=== PATIENT | female | born 1975 | race Caucasian/White ===

== ENCOUNTER 2016-08-24 08:26 | Inpatient (IN) | payer OTHER ==
[2016-08-14 15:31] VITALS: BMI 31.0
--- NOTE | 2016-08-14 16:06 | PAT Medication Instructions ---
Service Date Aug 14, 2016. Current Home Medication List Acitretin (Acitretin), 10 MG PO QAM Albuterol Hfa (Ventolin Hfa), 2 PUFFS INH PRN Ascorbic Acid (Vitamin C), 500 MG PO PRN Sertraline (Zoloft), 100 MG PO QAM [Calcium], 1,200 UNITS PO QAM [Vitamin D], 800 UNITS PO QAM Medication Instructions For Your Scheduled Surgery Acitretin (Acitretin), 10 MG PO QAM (patient will check with naturalization examiner for instructions) - Hold the following medications the morning of surgery: Calcium 1,200 UNITS PO QAM Vitamin D, 800 UNITS PO QAM Ascorbic Acid (Vitamin C), 500 MG PO PRN - Take the following medications the morning of surgery with a sip of water: Sertraline (Zoloft), 100 MG PO QAM Albuterol Hfa (Ventolin Hfa), 2 PUFFS INH PRN (bring with you to hospital on day of surgery - use if needed) - Take the following medications as scheduled the night before surgery: Albuterol Hfa (Ventolin Hfa), 2 PUFFS INH PRN (if needed) If you have any questions please call us at [phone] or [phone] ( [place]) or [phone]
[2016-08-14 16:36] LABS: BASO % 0.5 %; BASO ABS # 0.04 K/uL (0-0.2); COMPLETE YES; EOS % 3.7 %; HEMATOCRIT 42.4 % (37-47); IG% 0.1 %; LYMPH % 42.9 %; LYMPH ABS # 3.22 K/uL (1.2-3.4); MEAN CELL VOLUME 88.7 fL (80-100); MEAN CORPUSCULAR HEMOGLOBIN 29.9 pg (25-34); MEAN CORPUSCULAR HGB CONC 33.7 g/dl (32-36); MEAN PLATELET VOLUME 9.5 fL (7.4-10.4); MONO % 7.9 %; NEUT % 44.9 %; PLATELET COUNT 353 K/uL (130-400); RED BLOOD COUNT 4.78 M/uL (4.2-5.4); WHITE BLOOD COUNT 7.51 K/uL (4.8-10.8)
[2016-08-14 16:38] LABS: URINE APPEARANCE CLEAR (CLEAR); URINE BILIRUBIN NEG (NEG); URINE COLOR YELLOW; URINE NITRITE NEG (NEG); URINE PH 6.5 (4.5-7.5); URINE SPECIFIC GRAVITY 1.014 (1.000-1.030); UROBILINOGEN NEG (NEG)
[2016-08-14 16:44] LABS: MANUAL MICROSCOPIC REQUIRED? NO; REVIEW REQ? NO
[2016-08-14 17:01] LABS: BUN/CREATININE RATIO 16.4 (10-20); CREATININE 0.69 mg/dl (0.60-1.20); POTASSIUM 4.1 mmol/L (3.5-5.1)
--- NOTE | 2016-08-14 17:30 | DIAGNOSTIC IMAGING REPORT ---
TWO VIEW CHEST CLINICAL HISTORY: Preoperative examination. FINDINGS: PA and lateral chest radiographs are obtained. The cardiomediastinal silhouette is unremarkable. The lungs and pleural spaces are clear. There is no pneumothorax. The bony thorax appears intact. IMPRESSION: No active disease in the chest. Electronically signed by: Agustin Laguna M.D. 08/14/2016 5:28 PM Dictated Date/Time: 08/14/2016 5:27 PM
[2016-08-24] VITALS (9 sets, daily range): BP systolic 98–139; BP diastolic 59–81; PULSE 49–89; TEMP 36.5–36.9; O2SAT 93–97; Ht 160 cm; Wt 79.6 kg
[~2016-08-24] VITALS: Ht 160 cm; Wt 79.6 kg
[~2016-08-24 08:26] MED LIST: ACIT1CAP PO; ASCO1CAP3 PO; CALC-51 PO; CEFAZOLIN 2000 MG/60 ML D5W IV SCH; CeleBREX 200 MG CAP PO SCH; LACTATED RINGER'S 1000ML 1,000 ML IV SCH; PREGABALIN 75 MG CAP PO SCH; SERT-234 PO; VITAMIN D PO; VNTHFA/IN INH
[2016-08-24] MEDS ORDERED: ROCURONIUM BROMIDE 10 MG/ML 5 ML VIAL ONE (08:52)
[2016-08-24] MEDS ORDERED: FENTANYL CITRATE INJ 50 MCG/1 ML 2 ML VIAL ONE (08:52)
[2016-08-24] MEDS ORDERED: ONDANSETRON INJ 2 MG/ML 2 ML VIAL ONE (08:52)
[2016-08-24] MEDS ORDERED: DEXAMETHASONE SOD INJ 4 MG/ML VIAL ONE (08:52)
[2016-08-24] MEDS ORDERED: PROPOFOL IV EMULSION 10 MG/ML 20 ML VIAL IV ONE (08:52)
[2016-08-24] MEDS ORDERED: MIDAZOLAM HCL 1 MG/ML 2ML VIAL ONE (08:52)
[2016-08-24] MEDS ORDERED: GLYCOPYRROLATE INJ 0.2 MG/ML VIAL ONE (08:52)
[2016-08-24] MEDS ORDERED: NEOSTIGMINE METHYLSULFATE 1 MG/ML 10ML VIAL ONE (08:52)
[2016-08-24] MEDS ORDERED: LIDOCAINE HCL 2% 2 ML VIAL (20MG/ML) ONE (08:52)
[2016-08-24] MEDS ORDERED: LACTATED RINGER'S 1000ML 1,000 ML IV PRN (09:56)
[2016-08-24] MEDS ORDERED: ONDANSETRON INJ 2 MG/ML 2 ML VIAL IV PRN ×2 (10:00→13:15)
--- NOTE | 2016-08-24 10:25 | History and Physical ---
History & Physical Date Aug 24, 2016. Chief Complaint LBP and L leg pain History of Present Illness The patient is a 40 year old female with complaints of above for years that has failed outpatient treatment. no incontinence. numbness in L leg, occ subjective weakness. MRI shows L5-S1 isthmic spondy with foraminal stenosis. Past Medical/Surgical History asthma OA depression smoker BTL hyster Additional History Hepatic Disease: No Endocrine Disorder: No Kidney Disease: No Hypertension: No Heart Disease: No Bleeding Tendencies: No Infectious Diseases: No Allergies Coded Allergies: Iodinated Diagnostic Agents (Verified Allergy, Unknown, ANAPHYLAXIS-WITH CAT SCAN DYE, 08/24/16) SKIN ON FIRE, LOSES HEARING.SOB WITH PROGRESSION Home Medications Scheduled Acitretin (Acitretin), 10 MG PO QAM Albuterol Hfa (Ventolin Hfa), 2 PUFFS INH PRN Ascorbic Acid (Vitamin C), 500 MG PO PRN Sertraline (Zoloft), 100 MG PO QAM [Calcium], 1,200 UNITS PO QAM [Vitamin D], 800 UNITS PO QAM Physical Examination Skin: warm/dry Eyes: normal inspection ENT: normal ENT inspection Head: normocephalic, atraumatic Neck: supple, trachea midline Respiratory/Chest: lungs clear, no respiratory distress Cardiovascular: regular rate, rhythm Back: normal inspection Extremities: normal inspection, normal range of motion Neurologic/Psych: no motor/sensory deficits, alert, normal reflexes, oriented x 3 Diagnosis L5-S1 isthmic spondy gr I. Plan of Treatment L5-S1 TLIF, possible L4-5 PSF
[2016-08-24] MEDS ORDERED: HYDROmorphone INJ 2 MG/ML SYR/VIAL ONE (11:06)
[2016-08-24] MEDS ORDERED: EpHEDrine SULFATE 50MG/5ML SYR ONE (11:45)
[2016-08-24] MEDS ORDERED: BACITRACIN 50000 UNIT VIAL IR ONE (12:10)
[2016-08-24] MEDS ORDERED: FLOSEAL HEMOSTATIC MATRIX 10ML TOP ONE (12:10)
[2016-08-24] MEDS ORDERED: THROMBIN FOR SOLN 20000 UNIT KIT TOP ONE (12:10)
[2016-08-24] MEDS ORDERED: THROMBIN 5000 UNITS KIT TOP ONE (12:10)
[2016-08-24] MEDS ORDERED: BUPIVACAINE/EPINEPHRINE 0.5% MPF 1:200,000 30 ML VIAL INJ ONE (12:10)
[2016-08-24] MEDS: FENTANYL CITRATE INJ 50 MCG/1 ML 2 ML VIAL IV PRN ×2 (12:31→12:36)
[2016-08-24] MEDS: MoRPHine SULFATE 10 MG/ML CARP/VIAL IV PRN ×4 (12:41→12:56)
[2016-08-24] MEDS ORDERED: SODIUM CHLORIDE 0.9% 1000ML 1,000 ML IV SCH (13:04)
--- NOTE | 2016-08-24 13:04 | [facility] Post Operative Brief Note ---
Immediate Operative Summary Operative Date Aug 24, 2016. Pre-Operative Diagnosis L5-S1 Isthmic Spondylolisthesis Post-Operative Diagnosis L5-S1 Isthmic Spondylolisthesis Procedure(s) Performed L5-S1 America Jones with Instrumented Fusion, Interbody Cage L5-S1 Surgeon Dr. Petit Auto Damage Adjuster Surgeon(s) OR scot Estimated Blood Loss 60 mL Findings dict Specimens None
[2016-08-24] MEDS ORDERED: HYDROmorphone HCL 0.5MG/ML 50 ML CASSETTE ONE (13:13)
[2016-08-24] MEDS ORDERED: hydrOXYzine HCL 25 MG TAB PO PRN (13:15)
[2016-08-24] MEDS ORDERED: ACETAMINOPHEN IV 100 ML IV PRN (13:15)
[2016-08-24] MEDS ORDERED: ALUMINUM/MAGNESIUM SUSP 30 ML UDC PO PRN (13:15)
[2016-08-24] MEDS ORDERED: MAGNESIUM HYDROXIDE SUSP 30 ML UDC PO PRN (13:15)
[2016-08-24] MEDS ORDERED: LORAZEPAM INJ 0.5 MG in SYRINGE 0.75 ML IV PRN (13:15)
[2016-08-24] MEDS ORDERED: NALOXONE HCL 0.4 MG/1 ML VIAL/CARP IV PRN ×2 (13:15)
[2016-08-24] MEDS ORDERED: HYDROmorphone INJ 1 MG/ML SYR IV PRN (13:15)
[2016-08-24] MEDS ORDERED: FAMOTIDINE 20 MG TAB PO PRN (13:15)
[2016-08-24] MEDS ORDERED: ALBUTEROL HFA 8 GM INHALER INH PRN (13:15)
[2016-08-24] MEDS ORDERED: SOD PHOSPHATE/SOD BIPHOSPHATE ENEMA 132 ML BTL PR PRN (13:15)
[2016-08-24] MEDS ORDERED: BISACODYL 10 MG SUPP PR PRN (13:15)
[2016-08-24] MEDS ORDERED: PROMETHAZINE HCL INJ 12.5 MG in SODIUM CHLORIDE 0.9% 50ML 50 ML IV PRN (13:15)
[2016-08-24] MEDS ORDERED: METOCLOPRAMIDE HCL INJ 5 MG/ML 2 ML VIAL IV PRN (13:15)
--- NOTE | 2016-08-24 13:18 | Anesthesiology Progress Note ---
Anesthesia Post Op Note Date & Time Aug 24, 2016 at 13:19 Vital Signs Pain Intensity: 4 Vital Signs Past 12 Hours Date Time Temp Pulse Resp B/P Pulse Ox O2 Delivery O2 Flow Rate FiO2 08/24/16 13:05 62 12 107/59 97 Nasal Cannula 4 08/24/16 12:55 71 13 121/70 99 Nasal Cannula 4 08/24/16 12:45 61 14 130/82 98 Mask 10 08/24/16 12:35 62 19 126/83 100 Mask 10 08/24/16 12:26 36.5 74 15 146/96 100 Mask 10 08/24/16 08:48 36.5 49 20 139/81 97 Room Air Notes Mental Status: alert / awake / arousable, participated in evaluation Pt Amnestic to Procedure: Yes Nausea / Vomiting: adequately controlled Pain: adequately controlled Airway Patency, RR, SpO2: stable & adequate BP & HR: stable & adequate Hydration State: stable & adequate Anesthetic Complications: no major complications apparent
[2016-08-24] MEDS: HYDROmorphone HCL 0.5MG/ML 50 ML CASSETTE IV PRN ×3 (13:50→23:13)
[2016-08-24] MEDS: SODIUM CHLORIDE 0.9% 1000ML 1,000 ML IV SCH (14:04)
--- NOTE | 2016-08-24 15:36 | DIAGNOSTIC IMAGING REPORT ---
Lumbar spine LUMBAR SPINE 2 OR 3 VIEW CLINICAL HISTORY: L5 S1 SALIMA laminectomy TECHNIQUE: Image intensifier COMPARISON STUDY: None FINDINGS: Findings consistent with an L5-S1 laminectomy and fusion. Disc spacer has been placed at the L5-S1 disc. Hardware appears to be intact. IMPRESSION: L5-S1 laminectomy and fusion Electronically signed by: Vikas Conn M.D. 08/24/2016 3:34 PM Dictated Date/Time: 08/24/2016 3:33 PM
[2016-08-24] MEDS: DEXAMETHASONE INJ 6 MG in SYRINGE 0 ML IV SCH (15:48)
[2016-08-24] MEDS: CEFAZOLIN IV 2,000 MG in DEXTROSE 5% 50ML 50 ML IV SCH (17:46)
[2016-08-24] MEDS ORDERED: DOCUSATE SODIUM/SENNA 50/8.6MG TAB PO SCH (21:00)
[2016-08-24] MEDS: LORAZEPAM 0.5 MG TAB PO PRN (23:21)
[2016-08-25] MEDS: DEXAMETHASONE INJ 6 MG in SYRINGE 0 ML IV SCH ×2 (00:11→08:11)
[2016-08-25] MEDS: SODIUM CHLORIDE 0.9% 1000ML 1,000 ML IV SCH (02:02)
[2016-08-25] MEDS: CEFAZOLIN IV 2,000 MG in DEXTROSE 5% 50ML 50 ML IV SCH (02:02)
[2016-08-25 03:10] VITALS: BP 96/60; PULSE 66; TEMP 36.8; O2SAT 93
[2016-08-25] MEDS ORDERED: DC PCA SCH (06:00)
[2016-08-25] MEDS ORDERED: NURSING DECISION MEDICATION ORDER SCH (06:30)
[2016-08-25 06:47] LABS: BASO % 0.1 %; BASO ABS # 0.01 K/uL (0-0.2); COMPLETE YES; HEMATOCRIT 37.9 % (37-47); IG% 0.3 %; LYMPH % 7.3 %; LYMPH ABS # 1.13 K/uL (1.2-3.4); MEAN CELL VOLUME 90.5 fL (80-100); MEAN CORPUSCULAR HEMOGLOBIN 29.8 pg (25-34); MEAN PLATELET VOLUME 9.8 fL (7.4-10.4); MONO % 3.1 %; NEUT % 89.2 %; PLATELET COUNT 292 K/uL (130-400); RED BLOOD COUNT 4.19 M/uL (4.2-5.4); WHITE BLOOD COUNT 15.57 K/uL (4.8-10.8)
[2016-08-25 07:23] LABS: BUN/CREATININE RATIO 9.3 (10-20); CALCIUM 8.4 mg/dl (8.5-10.1); CREATININE 0.87 mg/dl (0.60-1.20)
--- NOTE | 2016-08-25 07:49 | Anesthesiology Progress Note ---
Anesthesia Post Op Note Date & Time Aug 25, 2016 at 07:50 Vital Signs Vital Signs Past 12 Hours Date Time Temp Pulse Resp B/P Pulse Ox O2 Delivery O2 Flow Rate FiO2 08/25/16 07:21 Room Air 08/25/16 03:10 36.8 66 17 96/60 93 Room Air 08/24/16 23:25 Room Air 08/24/16 22:44 36.8 69 16 108/63 93 Room Air Notes Mental Status: alert / awake / arousable, participated in evaluation Pt Amnestic to Procedure: Yes Nausea / Vomiting: adequately controlled Pain: adequately controlled Airway Patency, RR, SpO2: stable & adequate BP & HR: stable & adequate Hydration State: stable & adequate Anesthetic Complications: no major complications apparent
[2016-08-25 08:07] VITALS: BP 120/70; PULSE 61; TEMP 36.8; O2SAT 97
[2016-08-25] MEDS ORDERED: SERTRALINE HCL 100 MG TAB PO SCH (09:00)
[2016-08-25 09:17] VITALS: O2SAT 97
[2016-08-25] MEDS: OXYCODONE HCL IR 5 MG TAB (IMMEDIATE RELEASE) PO PRN ×2 (10:27→17:05)
[2016-08-25 11:35] VITALS: BP 110/65; PULSE 74; TEMP 36.8; O2SAT 97
[2016-08-25] MEDS: LORAZEPAM 0.5 MG TAB PO PRN (12:50)
--- NOTE | 2016-08-25 14:46 | Orthopedic Progress Note ---
Orthopedic Progress Note Date of Service Aug 25, 2016. Subjective Post OP Day: 1 Reports: feeling well Objective N/V intact, dressing C/D/I, A&O x3 Date Time Temp Pulse Resp B/P Pulse Ox O2 Delivery O2 Flow Rate FiO2 08/25/16 11:35 36.8 74 17 110/65 97 Room Air 08/25/16 09:17 97 Room Air 08/25/16 08:07 36.8 61 23 120/70 97 Room Air 08/25/16 07:21 Room Air 08/25/16 03:10 36.8 66 17 96/60 93 Room Air 08/24/16 23:25 Room Air 08/24/16 22:44 36.8 69 16 108/63 93 Room Air 08/24/16 19:17 36.5 60 16 115/75 95 Nasal Cannula 2.0 08/24/16 17:09 36.6 81 16 109/67 94 Nasal Cannula 2.0 08/24/16 16:02 36.8 62 16 98/59 95 Nasal Cannula 2.0 08/24/16 15:55 Nasal Cannula 4.0 08/24/16 15:00 74 16 114/73 95 Nasal Cannula 2.0 Laboratory Results 24 Hours: Test 08/25/16 05:56 White Blood Count 15.57 K/uL Red Blood Count 4.19 M/uL Hemoglobin 12.5 g/dL Hematocrit 37.9 % Mean Corpuscular Volume 90.5 fL Mean Corpuscular Hemoglobin 29.8 pg Mean Corpuscular Hemoglobin Concent 33.0 g/dl Platelet Count 292 K/uL Mean Platelet Volume 9.8 fL Neutrophils (%) (Auto) 89.2 % Lymphocytes (%) (Auto) 7.3 % Monocytes (%) (Auto) 3.1 % Eosinophils (%) (Auto) 0.0 % Basophils (%) (Auto) 0.1 % Neutrophils # (Auto) 13.91 K/uL Lymphocytes # (Auto) 1.13 K/uL Monocytes # (Auto) 0.48 K/uL Eosinophils # (Auto) 0.00 K/uL Basophils # (Auto) 0.01 K/uL Discharge Planning Discharge Planning: home Pain Management: Oxy IR DVT Prophylaxis: SCDs
[2016-08-25] MEDS ORDERED: RXC5 PO (14:58)
--- NOTE | 2016-08-25 15:01 | Discharge Instructions ---
Discharge Instructions Admission Reason for Admission: Lumbar Spinal Stenosis Discharge Discharge Diagnosis / Problem: isthmic spondy Discharge Goals Goal(s): Decrease discomfort Activity Recommendations Activity Limitations: per Instructions/Follow-up section . Instructions / Follow-Up Instructions / Follow-Up ACTIVITY RECOMMENDATIONS: SELF CARE INSTRUCTIONS AFTER THORACIC/LUMBAR FUSIONS 1. You may walk to your tolerance. It is good exercise for your legs and back. Expect some back and intermittent leg aches and pains. 2. You may perform "counter-top" level activities (make a sandwich, hilda with a project, etc.). 3. No bending or lifting of more than 10 pounds or back twisting of any nature (roll like a log when turning in bed). 4. You may ride in a car for 20-30 minutes at a time. No driving until after your first visit with your doctor. 5. Frequent changes of position and restricting sitting to 30 minutes at a time will help limit the amount of back spasms and stiffness you may experience. 6. You may discontinue the use of ambulatory aids (cane, crutches, etc.) once your strength and confidence allow. 7. You may die drawing checker the shower and let water strike your incision when you arrive home at least once daily. Do not take a tub bath, sit in a hot tub or go into a swimming pool until after your first recheck in the office. SPECIAL CARE INSTRUCTIONS: VERY IMPORTANT TO READ AND REVIEW A. Your surgical incision has been closed with a cosmetic suture under the skin that will dissolve in about 6 weeks. In 14 days, you can use a pair of clean scissors and cut the suture that is left outside of the skin at the ends of your incision. 1. The small skin tapes can be removed 7 days after surgery if they have not fallen off by that point. 2. You may keep the wound open to air as much as possible to promote healing after post-op day number 5 unless told otherwise by your doctor. 3. If you think the wound looks like it is becoming infected (redness or worsening drainage) and/or you are experiencing fever, chill or worsening back pain and muscle spasms, contact the office so that we may evaluate you as soon as possible. B. Complications are uncommon, but please contact us if you have any signs or symptoms of: 1. wound infection (fever higher than 102.5 degrees F, redness, separation of wound, drainage, or increasing pain from the incision) 2. blood clots in legs (pain, swelling, redness and warmth in legs) 3. urinary tract infection (fever higher than 102.5 degrees F, burning upon urination or increased frequency of urination) 4. nerve problems (inability to walk on your toes or heels, numbness, loss of bowel or bladder control) 5. any other symptoms that concern you C. Please call the office at if you have any concerns or questions about your operation or recovery. D. No smoking! Smoking drastically decreases the chance of a solid fusion. E. Do not take any anti-inflammatory medications (Indocin, Advil, Motrin, Aspirin, Naprosyn, etc.) as these may inhibit the chance of a solid fusion. Tylenol is okay to take for pain. MANAGING PAIN AFTER SPINAL SURGERY 1. Narcotic medication is intended for short-term use and will be provided for surgical pain. Surgical pain usually lasts for a period of 4-6 weeks. Narcotic medication includes Percocet, Vicodin, Darvocet, Tylenol #3 or Lortab. 2. Longer-term pain is more appropriately treated with non-narcotic medication such as Tylenol ES. 3. Muscle spasm is not appropriately treated with narcotics. Muscle relaxers such as Soma, Flexeril or Skelaxin can be used along with Tylenol ES. 4. Remember that we all live with some "aches and pains". This is not unusual or uncommon after an injury or as we get older. a. Back pain is expected and may include muscle spasms for 4 to 6 weeks after surgery. The pain should gradually improve. If the pain worsens for no apparent reason, please contact the office. b. Intermittent leg pain may also be experienced and should not be concerned about unless it worsens for no apparent reason. If so, please contact the office. 5. We will provide appropriate medication within the normal guidelines of their prescribed use. We will also be very cautious and aware of potential abuse and extended duration of patients' medication needs. a. Pain medications are for your comfort and to assist with sleep and rest so that the tissue can heal. They are not provided in order to return to normal activity and should not be used through the day. To do so or worsening pain at night can result from ongoing tissue damage and development of tolerance to the prescribed medicine. 6. Please allow 2-3 days to process refills. Prescriptions will not be mailed but must be picked up at the office. FOLLOW UP VISIT: Keep your scheduled follow-up appointment. Any questions, please call the office at . Current Hospital Diet Patient's current hospital diet: Regular Diet Discharge Diet Recommended Diet: Regular Diet Procedures Procedures Performed: L5-S1 Cross Lami with Instrumented Fusion, Interbody Cage L5-S1 Pending Studies Studies pending at discharge: no Medical Emergencies . Who to Call and When: Medical Emergencies: If at any time you feel your situation is an emergency, please call 911 immediately. . Non-Emergent Contact Non-Emergency issues call your: Primary Care Provider . "Provider Documentation" section prepared by Marshall Petit. VTE Core Measure Inpt VTE Proph given/why not?: SCD's
[2016-08-25 15:11] VITALS: BP 104/64; PULSE 66; TEMP 36.7; O2SAT 93
[2016-08-25 16:09] VITALS: BP 104/64; PULSE 66; TEMP 36.7; O2SAT 93
[2016-08-26] MEDS ORDERED: POLYETHYLENE (MIRALAX) 17 GM PACK PO SCH (06:00)
--- NOTE | 2016-09-05 19:36 | OPERATIVE REPORT ---
DATE OF OPERATION: 08/24/2016 PREOPERATIVE DIAGNOSES: L5-S1 isthmic spondylolisthesis -- grade 1. POSTOPERATIVE DIAGNOSIS: Same. PROCEDURES: 1. Cross laminectomy L5 with S1 decompression. 2. Nonsegmental pedicle screw instrumentation -- bilateral L5 and S1 with K2M Hughson pedicle screws. 3. Posterior lateral fusion, L5-S1 -- bilateral with Infuse BMP on a collagen sponge, tricalcium phosphate, local bone, bone putty and bone marrow aspirate. 4. Left L5-S1 transforaminal lumbar interbody fusion with titanium mesh interbody cage, local bone, bone putty, bone marrow aspirate. 5. Right iliac crest bone marrow aspiration stem cell concentration Arteriocyte and application of bone graft. SURGEON: Dr. Petit. RESEARCH ARCHAEOLOGIST: OR staff. ANESTHESIA: General endotracheal anesthesia. COMPLICATIONS: None. ESTIMATED BLOOD LOSS: Per anesthesia record. DESCRIPTION OF PROCEDURE: After identification of patient and operative level, she was brought to the OR where she underwent induction of general anesthesia. She was then positioned prone on Celestine OR table. All bony prominences were well padded. Care was taken to avoid pressure on the periorbital area. Lumbosacral area was sterilely prepped and draped in usual fashion. Antibiotics were administered. Time-out was performed. Level was confirmed. Skin incision was made from spinous process of L4 to the sacrum after infiltration with Marcaine. I exposed the posterior elements, placed Gelpi retractors and confirmed level with fluoroscopy. The loose Cross fragment was identified and wide Cross laminectomy was performed with removal of the Cross fragment en bloc. I then took down the remaining pars defect and decompressed the nerve roots widely from L5-S1 bilaterally. I applied FloSeal for hemostasis and placed pedicle screws bilaterally at L5 and S1 with K2M Hughson pedicle screws. I checked screw length trajectory and position with fluoroscopy and then did a complete discectomy from the left side at L5-S1, prepared the disc space with kalina and curettes for subsequent cage introduction, identified bleeding bony endplates and then filled the cage with local bone, bone putty and bone marrow aspirate. Bone marrow aspirate taken from the right iliac crest via separate stab incision with a Jamshidi needle concentrated with Arteriocyte system. I then tamped the cage into position and restored disc height. I had good stability following insertion. I restored lordosis, applied rods and endcaps final tightened, irrigated with bacitracin solution and decorticated transverse process sacral ala at L5-S1 bilaterally with a high speed bur. I then packed the lateral gutters with bone graft mixture as above and confirmed hemostasis and closed in layered fashion over RENAN drain. All sponge and needle counts were correct at the end of the case. I attest to the content of the Intraoperative Record and any orders documented therein. Any exceptio ns are noted below.
--- NOTE | 2016-09-06 12:54 | DISCHARGE SUMMARY ---
PREOPERATIVE DIAGNOSIS: L5-S1 isthmic spondylolisthesis. POSTOPERATIVE DIAGNOSIS: Same. PROCEDURE: Cross laminectomy of L5 with S1 decompression and fusion L5-S1. SURGEON: Dr. Marshall Petit. COMPLEX COMMERCIAL LITIGATION PARALEGAL: OR staff. HISTORY OF PRESENT ILLNESS: Please refer to EMR. HOSPITAL COURSE: On 08/24/2016 Ms. Carolina was admitted to [facility] with the above diagnosis. She was taken to preoperative holding where she was identified and evaluated and cleared for surgical management. She was transported to the operating room, introduced with general anesthesia, sterile conditions were set and she successfully underwent the above procedure without complication or issue. She was awakened in stable and satisfactory condition, transported to postoperative recovery where her vital signs and pain were monitored and managed without complication. She was taken to the orthopedic floor for continued postoperative care. Throughout her stay, her vital signs and pain were monitored and managed through physician direction. She completed physical therapy. DVT and GI prophylactic measures were taken. There were no complications or issues. She had a benign postsurgical course. On day of discharge she was evaluated by her provider and indicated for return home. On this date, she was discharged from [facility]. DISPOSITION: Home. DISPOSITION CONDITION: Stable. NOTED COMPLICATIONS OR ISSUES: Zero. DISCHARGE INSTRUCTIONS: Please refer to EMR.
== END 2016-08-25 17:08 | disposition home or self-care (01) | DRG 460 ==
LOC: ENRESERVTM → ENRESERVDT → C.ACU 08:26 → C.3E 13:07
PROVIDERS: ADMIT Orthopaedic Surgery Orthopaedic Surgery of the Spine; ATTEND Orthopaedic Surgery Orthopaedic Surgery of the Spine
PROC: 0SG3071 Fusion of Lumbosacral Joint with Autologous Tissue Substitute, Posterior Approach, Posterior Column, Open Approach (ICD-10-PCS; principal; 2016-08-24 10:15)
PROC: 07DR3ZZ Extraction of Iliac Bone Marrow, Percutaneous Approach (ICD-10-PCS; principal; 2016-08-24 10:15)
PROC: 3E0U0GB Introduction of Recombinant Bone Morphogenetic Protein into Joints, Open Approach (ICD-10-PCS; principal; 2016-08-24 10:15)
PROC: 0SG30AJ Fusion of Lumbosacral Joint with Interbody Fusion Device, Posterior Approach, Anterior Column, Open Approach (ICD-10-PCS; principal; 2016-08-24 10:15)
PROC: 0ST40ZZ Resection of Lumbosacral Disc, Open Approach (ICD-10-PCS; principal; 2016-08-24 10:15)
DX: M43.17 Spondylolisthesis, lumbosacral region (principal); J45.909 Unspecified asthma, uncomplicated; M19.90 Unspecified osteoarthritis, unspecified site; L40.9 Psoriasis, unspecified; F41.9 Anxiety disorder, unspecified; F32.9 Major depressive disorder, single episode, unspecified; F17.210 Nicotine dependence, cigarettes, uncomplicated; E66.9 Obesity, unspecified; Z68.31 Body mass index [BMI] 31.0-31.9, adult; Z79.899 Other long term (current) drug therapy